=== PATIENT | female | born 2000 | race Hispanic/Latino ===

== ENCOUNTER 2023-12-12 20:51 | Emergency (ER) | payer MEDICAID ==
[~2023-12-12] VITALS: Ht 152.4 cm; Wt 65.5 kg
[~2023-12-12 20:51] MED LIST: DOCU-116 PO; IBUP-2071 PO; PREN1TAB76 PO
[2023-12-12 21:16] LABS: RAPID GROUP A STREP negative (NEGATIVE)
[2023-12-12 21:20] LABS: SARS-CoV-2, RNA, NAAT NEGATIVE SARS CoV-2 (NEGATIVE)
[2023-12-12 21:26] LABS: INFLUENZA TYPE A Negative For Type A (NEGATIVE); INFLUENZA TYPE B Negative For Type B (NEGATIVE)
[2023-12-12 22:25] LABS: HCG,QUALITATIVE URINE NEGATIVE (NEGATIVE)
[2023-12-12 22:26] LABS: APPEARANCE,URINE CLOUDY (CLEAR); BILIRUBIN,URINE NEGATIVE (NEGATIVE); COLOR,URINE YELLOW (YELLOW); GLUCOSE, URINE (UA) NEGATIVE (NEGATIVE); KETONES,URINE NEGATIVE (NEGATIVE); LEUKOCYTE ESTERASE ,URINE 500 Leu/uL (NEGATIVE); NITRATE,URINE NEGATIVE (NEGATIVE); OCCULT BLOOD,URINE NEGATIVE (NEGATIVE); PROTEIN,URINE 30 mg/dL (NEGATIVE); UROBILINOGEN,URINE 0.2 mg/dL (0.2-1.0)
[2023-12-12 22:30] LABS: ADD UA MICROSCOPIC YES
[2023-12-12 22:34] LABS: BACTERIA,URINE RARE /HPF (None Seen); MUCUS,URINE RARE LPF (None Seen); NON-SQUAMOUS EPITHELIAL CELL 1 /HPF (0-2); SQUAMOUS EPITHELIAL CELL,UR MANY /HPF (0-2)
[2023-12-12 22:52] LABS: BASOPHILS # (AUTO) 0.02 K/uL (0.00-0.20); BASOPHILS % (AUTO) 0.2 % (0.0-5.0); HEMATOCRIT 37.7 % (36-48); IMMATURE GRANULOCYTE ABSOLUTE 0.02 K/uL (0-1); LYMPHOCYTES # (AUTO) 0.8 K/uL (1.0-4.8); LYMPHOCYTES % (AUTO) 9.3 % (21.0-51.0); MEAN CORPUSCULAR HEMOGLOBIN 26.5 pg (27.0-33.0); MEAN CORPUSCULAR HGB CONC 32.4 g/dL (32.0-36.0); MONOCYTES # (AUTO) 0.3 K/uL (0.1-1.0); MONOCYTES % (AUTO) 3.6 % (3.0-13.0); NEUTROPHILS # (AUTO) 7.7 K/uL (1.8-7.7); NEUTROPHILS % (AUTO) 86.7 % (40.0-77.0); PLATELET COUNT (AUTO) 230 K/uL (130-400); RED CELL DISTRIBUTION WIDTH 14.8 % (11.0-15.5); WHITE BLOOD COUNT (AUTO) 8.9 K/uL (4.8-10.8)
[2023-12-12 23:07] LABS: POTASSIUM 3.4 mmol/L (3.5-5.1)
[2023-12-12 23:29] LABS: CREATININE 0.8 mg/dL (0.5-1.5)
[2023-12-12 23:38] LABS: ALBUMIN 3.3 g/dL (3.5-5.0); BILIRUBIN,TOTAL 0.6 mg/dL (0.2-1.0); TOTAL PROTEIN, SERUM 7.7 g/dL (6.0-8.3)
[2023-12-13] MEDS ORDERED: CEPH500B PO (00:12)
[2023-12-13] MEDS ORDERED: LIDOCAINE HCL 1% 20 ML VIAL ONE (00:20)
[2023-12-13 00:23] VITALS: BP 132/68; PULSE 87; RESP 16; O2SAT 100
[2023-12-13] MEDS ORDERED: CEFTRIAXONE 1G VIAL IM ONE (00:30)
== END 2023-12-13 00:58 | disposition home or self-care (01) ==
LOC: EDH 20:51
DX: N39.0 Urinary tract infection, site not specified (principal); Z79.899 Other long term (current) drug therapy; Z20.822 Contact with and (suspected) exposure to COVID-19
CPT/HCPCS: 99285; 76856; 87635; 87880; 80053; 85025; 87088; 87804 ×2; 81001; 81025; 36415; 96372; J0696